=== PATIENT | female | born 1955 | race Caucasian/White ===

== ENCOUNTER 2016-06-01 19:00 | Inpatient (IN) | payer BC, OTHER ==
[~2016-06-01] VITALS: Ht 167.6 cm; Wt 47.6 kg
[2016-06-01 19:15] VITALS: BP 128/71
[2016-06-01] MEDS: PROPOFOL 100 ML IV PRN (19:20)
[2016-06-01] MEDS ORDERED: IV NS 0.9% 1,000 ML BAG IV ONE (19:30)
[2016-06-01] MEDS ORDERED: ETOMIDATE 2 MG/ML VIAL IV ONE (19:30)
[2016-06-01] MEDS ORDERED: SUCCINYLCHOLINE CHLORIDE 20 MG/ML VIAL IV ONE (19:30)
[2016-06-01] MEDS ORDERED: IV SET PRIMARY PUMP SET 1 EA INFUS.SET MC ONE (19:31)
[2016-06-01] MEDS ORDERED: PROPOFOL 100 ML IV ONE (19:31)
[2016-06-01 19:36] LABS: KETONES,URINE Negative (NEGATIVE); LEUKOCYTE ESTERASE ,URINE Small (NEGATIVE)
[2016-06-01 19:37] LABS: ADD UA MICROSCOPIC YES
[2016-06-01 19:39] LABS: ADD URINE CULTURE NO
[2016-06-01 19:44] LABS: ALANINE AMINOTRANSFERASE 26 U/L (12-78); ALBUMIN 3.3 g/dL (3.4-5.0); ANION GAP 12 (5-14); ASPARTATE AMINOTRANSFERASE 25 U/L (15-37); BILIRUBIN,DIRECT 0.1 mg/dL (0.0-0.2); BILIRUBIN,TOTAL 0.3 mg/dL (0.2-1.0); CALCIUM, SERUM 8.9 mg/dL (8.5-10.1); CARBON DIOXIDE 30 mmol/L (21-32); CHLORIDE 101 mmol/L (98-107); CREATININE 1.1 mg/dL (0.6-1.3); GFR 51 mL/min (>60); GLUCOSE 113 mg/dL (74-106); INDIRECT BILIRUBIN 0.2 mg/dL (0.0-1.1); POTASSIUM 4.6 mmol/L (3.5-5.1); SODIUM SERUM 138 mmol/L (136-145); TOTAL PROTEIN, SERUM 7.3 g/dL (6.4-8.2); UREA NITROGEN, BLOOD 14 mg/dL (7-18)
[2016-06-01 19:45] LABS: ACETAMINOPHEN < 2 ug/ml (10-30); INR 1.15 (0.87-1.13); PROTHROMBIN TIME 12.1 SECS (9.5-12.7); SALICYLATE 0.9 mg/dL (2.8-20.0)
[2016-06-01 19:49] LABS: CANNABINOID, URINE NEGATIVE (NEGATIVE); PHENCYCLIDINE SCREEN,URINE NEGATIVE (NEGATIVE)
[2016-06-01 19:54] LABS: TROPONIN I < 0.017 ng/mL (0.00-0.056)
[2016-06-01 21:04] LABS: THYROID STIMULATING HORMONE 3.371 uIU/mL (0.358-3.74)
[2016-06-01 21:08] LABS: ANISOCYTOSIS 1+; BAND % (MANUAL) 1 % (0.0-5.0); LYMPHOCYTES % (MANUAL) 10 % (16-48); PLATELET ESTIMATE ADEQUATE
[2016-06-01 21:11] LABS: BASOPHILS % (AUTO) 0.3 % (0.0-2.0); DIFF TOTAL % 100 %; EOSINOPHILS % (AUTO) 0.1 % (0.0-6.0); HEMATOCRIT 33 % (33-45); HEMOGLOBIN 10.7 g/dL (11.5-14.8); LYMPHOCYTES # (AUTO) 0.7 /CMM (0.8-4.8); LYMPHOCYTES % (AUTO) 11.7 % (20.0-44.0); MEAN CORPUSCULAR HEMOGLOBIN 28 PG (26.0-33.0); MEAN CORPUSCULAR HGB CONC 33 g/dl (31.0-36.0); MEAN CORPUSCULAR VOLUME 86 fL (82-100); MONOCYTES # (AUTO) 0.4 /CMM (0.1-1.30); MONOCYTES % (AUTO) 6.4 % (2.0-12.0); NEUTROPHILS # (AUTO) 4.7 /CMM (1.8-8.9); NEUTROPHILS % (AUTO) 81.5 % (43.0-81.0); PLATELET COUNT (AUTO) 387 /CMM (150-450); RED BLOOD CELL COUNT(AUTO) 3.85 MIL/uL (4.0-5.2); WHITE BLOOD COUNT (AUTO) 5.8 K/uL (4.3-11.0)
[2016-06-01 21:15] LABS: PHOSPHORUS 3.9 mg/dL (2.5-4.9)
[2016-06-01 21:19] LABS: ABG BASE EXCESS 3.9 mmol/L; ABG HCO3 25.7 mmol/L; ABG PCO2 29.3 mmHg (35.0-45.0); ABG PH 7.561 (7.350-7.450); ABG PO2 202.6 mmHg (75.0-100.0); ABG TOTAL HEMOGLOBIN 10.8 G/dL (12.0-16.0); ALLEN TEST Pass; AaDO2 48.9 mmHg; O2Hb 98.4 % (94.0-97.0)
[2016-06-01 21:52] VITALS: BP 120/75
[2016-06-01 22:00] VITALS: BP 124/74
[2016-06-01 23:00] VITALS: BP 125/76
[2016-06-01 23:43] VITALS: BP 120/73
[2016-06-01] MEDS ORDERED: TRAZ300T2 PO (23:43)
[2016-06-01] MEDS ORDERED: ESCI20TA PO (23:43)
[2016-06-01] MEDS ORDERED: GABA600T2 PO (23:43)
[2016-06-01] MEDS ORDERED: CLON0.5T23 PO (23:43)
[2016-06-01] MEDS ORDERED: OLAN7.5T3 PO (23:43)
[2016-06-01] MEDS ORDERED: ZOLP10TA6 PO (23:43)
[2016-06-01] MEDS ORDERED: GABA-532 PO (23:43)
[2016-06-02] VITALS (46 sets, daily range): BP systolic 101–146; BP diastolic 56–94
[2016-06-02] MEDS ORDERED: HYDROCODONE/APAP 5/325MG 1 EACH TABLET PO PRN (02:00)
[2016-06-02] MEDS ORDERED: IV NS 0.9% 1,000 ML IV PRN (02:00)
[2016-06-02] MEDS ORDERED: MAGNESIUM HYDROXIDE 30 ML UDC PO PRN (02:00)
[2016-06-02] MEDS ORDERED: Z GUARD REMEDY 2 OZ OINT TP PRN (02:00)
[2016-06-02] MEDS ORDERED: ACETAMINOPHEN 325 MG TABLET PO PRN (02:00)
[2016-06-02] MEDS ORDERED: ONDANSETRON HCL/PF 4 MG/2 ML VIAL IVP PRN (02:00)
[2016-06-02] MEDS ORDERED: IV NS 0.9% 1,000 ML ONE (03:02)
[2016-06-02] MEDS ORDERED: IV SET PRIMARY PUMP SET 1 EA INFUS.SET MC ONE (03:03)
[2016-06-02] MEDS ORDERED: ENOXAPARIN SODIUM 40 MG/0.4 ML DISP.SYRIN SQ ONE (03:10)
[2016-06-02] MEDS: PANTOPRAZOLE 40 MG VIAL IV SCH (03:12)
[2016-06-02] MEDS ORDERED: ENOXAPARIN SODIUM 40 MG/0.4 ML DISP.SYRIN SQ SCH ×2 (03:30→07:12)
[2016-06-02 05:47] LABS: ABG BASE EXCESS 2.1 mmol/L; ABG HCO3 24.9 mmol/L; ABG PCO2 32.6 mmHg (35.0-45.0); ABG PH 7.501 (7.350-7.450); ABG PO2 203.8 mmHg (75.0-100.0); ABG TOTAL HEMOGLOBIN 10.7 G/dL (12.0-16.0); AaDO2 43.9 mmHg; O2Hb 97.1 % (94.0-97.0)
[2016-06-02] MEDS: PROPOFOL 100 ML IV PRN ×3 (06:54→18:04)
[2016-06-02] MEDS ORDERED: PANTOPRAZOLE 40 MG TABLET.DR PO SCH (07:30)
[2016-06-02] MEDS ORDERED: Magnesium 1GM/D5W 100ML PREMIX 100 ML IV SCH (11:30)
[2016-06-02] MEDS ORDERED: SECONDARY IV SET 1 EA INFUS.SET MC ONE (12:18)
[2016-06-02] MEDS ORDERED: SUCCINYLCHOLINE CHLORIDE 20 MG/ML VIAL IV ONE (12:28)
[2016-06-02] MEDS ORDERED: ETOMIDATE 2 MG/ML VIAL IV ONE (12:28)
[2016-06-02 13:02] LABS: ABG BASE EXCESS 0.7 mmol/L; ABG HCO3 23.7 mmol/L; ABG PCO2 32.3 mmHg (35.0-45.0); ABG PH 7.483 (7.350-7.450); ABG PO2 158.5 mmHg (75.0-100.0); ABG TOTAL HEMOGLOBIN 10.5 G/dL (12.0-16.0); ALLEN TEST Pass; AaDO2 53.5 mmHg; O2Hb 96.6 % (94.0-97.0)
[2016-06-02] MEDS: IV D5/ 0.9% NACL 1,000 ML IV PRN (14:19)
[2016-06-02] MEDS: ENOXAPARIN SODIUM 40 MG/0.4 ML DISP.SYRIN SQ SCH (20:53)
[2016-06-02] MEDS ORDERED: Magnesium 1GM/D5W 100ML PREMIX 100 ML IV ONE (22:18)
[2016-06-02] MEDS ORDERED: Magnesium 1GM/D5W 100ML PREMIX PIGGYBACK IV ONE (22:30)
[2016-06-02 23:09] LABS: CALCIUM, SERUM 8.4 mg/dL (8.5-10.1); POTASSIUM 3.9 mmol/L (3.5-5.1)
[2016-06-03] VITALS (44 sets, daily range): BP systolic 99–146; BP diastolic 58–87
[2016-06-03] MEDS ORDERED: IV SET PRIMARY PUMP SET 1 EA INFUS.SET MC ONE (01:02)
[2016-06-03] MEDS: PANTOPRAZOLE 40 MG VIAL IV SCH (02:02)
[2016-06-03] MEDS: PROPOFOL 100 ML IV PRN ×2 (03:22→07:38)
[2016-06-03] MEDS: IV D5/ 0.9% NACL 1,000 ML IV PRN ×3 (03:24→20:24)
[2016-06-03 04:55] LABS: BASOPHILS # (AUTO) 0.1 /CMM (0.0-0.2); DIFF TOTAL % 100 %; EOSINOPHILS # (AUTO) 0.1 /CMM (0.0-0.7); EOSINOPHILS % (AUTO) 0.8 % (0.0-6.0); HEMATOCRIT 32 % (33-45); HEMOGLOBIN 10.7 g/dL (11.5-14.8); LYMPHOCYTES # (AUTO) 1.2 /CMM (0.8-4.8); MEAN CORPUSCULAR HEMOGLOBIN 29 PG (26.0-33.0); MEAN CORPUSCULAR HGB CONC 33 g/dl (31.0-36.0); MEAN CORPUSCULAR VOLUME 86 fL (82-100); MONOCYTES # (AUTO) 1.3 /CMM (0.1-1.30); MONOCYTES % (AUTO) 17.2 % (2.0-12.0); NEUTROPHILS # (AUTO) 4.8 /CMM (1.8-8.9); PLATELET COUNT (AUTO) 316 /CMM (150-450); RED BLOOD CELL COUNT(AUTO) 3.76 MIL/uL (4.0-5.2); WHITE BLOOD COUNT (AUTO) 7.4 K/uL (4.3-11.0)
[2016-06-03 05:10] LABS: CALCIUM, SERUM 8.6 mg/dL (8.5-10.1); PHOSPHORUS 3.4 mg/dL (2.5-4.9); POTASSIUM 3.9 mmol/L (3.5-5.1)
[2016-06-03 05:57] LABS: EOSINOPHILS % (MANUAL) 1 % (0-4); LYMPHOCYTES % (MANUAL) 19 % (16-48); PLATELET ESTIMATE ADEQUATE
[2016-06-03 13:18] LABS: ABG BASE EXCESS -1.6 mmol/L; ABG PCO2 18.2 mmHg (35.0-45.0); ABG PH 7.613 (7.350-7.450); ABG PO2 145.4 mmHg (75.0-100.0); ABG TOTAL HEMOGLOBIN 10.7 G/dL (12.0-16.0); ALLEN TEST Pass; AaDO2 47.1 mmHg; O2Hb 97.2 % (94.0-97.0)
[2016-06-03] MEDS ORDERED: QUETIAPINE FUMARATE 25 MG TABLET PO PRN (16:30)
[2016-06-03] MEDS: ENOXAPARIN SODIUM 40 MG/0.4 ML DISP.SYRIN SQ SCH (20:15)
[2016-06-04] VITALS (22 sets, daily range): BP systolic 100–141; BP diastolic 55–81
[2016-06-04] MEDS: PANTOPRAZOLE 40 MG VIAL IV SCH (02:59)
[2016-06-04] MEDS: IV D5/ 0.9% NACL 1,000 ML IV PRN ×3 (05:44→20:55)
[2016-06-04 11:01] LABS: BASOPHILS % (AUTO) 0.5 % (0.0-2.0); DIFF TOTAL % 100 %; EOSINOPHILS # (AUTO) 0.1 /CMM (0.0-0.7); EOSINOPHILS % (AUTO) 1.2 % (0.0-6.0); HEMATOCRIT 28 % (33-45); HEMOGLOBIN 9.3 g/dL (11.5-14.8); LYMPHOCYTES # (AUTO) 0.9 /CMM (0.8-4.8); LYMPHOCYTES % (AUTO) 15.2 % (20.0-44.0); MEAN CORPUSCULAR HEMOGLOBIN 28 PG (26.0-33.0); MEAN CORPUSCULAR HGB CONC 33 g/dl (31.0-36.0); MEAN CORPUSCULAR VOLUME 85 fL (82-100); MONOCYTES # (AUTO) 0.8 /CMM (0.1-1.30); MONOCYTES % (AUTO) 13.8 % (2.0-12.0); NEUTROPHILS # (AUTO) 4.2 /CMM (1.8-8.9); NEUTROPHILS % (AUTO) 69.3 % (43.0-81.0); PLATELET COUNT (AUTO) 304 /CMM (150-450); RED BLOOD CELL COUNT(AUTO) 3.28 MIL/uL (4.0-5.2)
[2016-06-04 11:16] LABS: CALCIUM, SERUM 8.2 mg/dL (8.5-10.1); CREATININE 0.9 mg/dL (0.6-1.3); POTASSIUM 3.2 mmol/L (3.5-5.1)
[2016-06-04] MEDS: POTASSIUM CHLORIDE 20 MEQ TAB.PRT.SR PO SCH ×2 (12:27→12:28)
[2016-06-04] MEDS: QUETIAPINE FUMARATE 25 MG TABLET PO SCH (16:24)
[2016-06-04] MEDS ORDERED: IV SET PRIMARY PUMP SET 1 EA INFUS.SET MC ONE (20:30)
[2016-06-04] MEDS: ENOXAPARIN SODIUM 40 MG/0.4 ML DISP.SYRIN SQ SCH (21:06)
[2016-06-05] VITALS: BP 152/77
[2016-06-05] MEDS: PANTOPRAZOLE 40 MG VIAL IV SCH (01:28)
[2016-06-05 04:00] VITALS: BP 122/69
[2016-06-05] MEDS: IV D5/ 0.9% NACL 1,000 ML IV PRN (05:34)
[2016-06-05 08:01] LABS: BASOPHILS % (AUTO) 0.4 % (0.0-2.0); DIFF TOTAL % 100 %; EOSINOPHILS # (AUTO) 0.1 /CMM (0.0-0.7); HEMATOCRIT 28 % (33-45); HEMOGLOBIN 9.2 g/dL (11.5-14.8); LYMPHOCYTES # (AUTO) 0.9 /CMM (0.8-4.8); LYMPHOCYTES % (AUTO) 17.4 % (20.0-44.0); MEAN CORPUSCULAR HEMOGLOBIN 28 PG (26.0-33.0); MEAN CORPUSCULAR HGB CONC 33 g/dl (31.0-36.0); MEAN CORPUSCULAR VOLUME 86 fL (82-100); MONOCYTES # (AUTO) 0.6 /CMM (0.1-1.30); MONOCYTES % (AUTO) 11.8 % (2.0-12.0); NEUTROPHILS # (AUTO) 3.3 /CMM (1.8-8.9); NEUTROPHILS % (AUTO) 68.4 % (43.0-81.0); PLATELET COUNT (AUTO) 267 /CMM (150-450); RED BLOOD CELL COUNT(AUTO) 3.25 MIL/uL (4.0-5.2); WHITE BLOOD COUNT (AUTO) 4.9 K/uL (4.3-11.0)
[2016-06-05 08:09] VITALS: BP 132/76
[2016-06-05] MEDS: QUETIAPINE FUMARATE 25 MG TABLET PO SCH (08:17)
[2016-06-05 08:26] LABS: CALCIUM, SERUM 8.4 mg/dL (8.5-10.1); CREATININE 0.9 mg/dL (0.6-1.3); POTASSIUM 3.4 mmol/L (3.5-5.1)
[2016-06-05] MEDS ORDERED: POTASSIUM CHLORIDE 20 MEQ TAB.PRT.SR PO ONE (10:00)
[2016-06-05] MEDS ORDERED: QUET25TA PO ×2 (15:08)
[2016-06-05] MEDS ORDERED: ESCITALOPRAM OXALATE (10 MG) 10 MG TABLET PO SCH (15:30)
[2016-06-05] MEDS ORDERED: GABAPENTIN 100 MG CAPSULE PO SCH (17:00)
[2016-06-05] MEDS ORDERED: OLANZAPINE 2.5 MG TABLET PO SCH (22:00)
== END 2016-06-05 17:00 | DRG 917 ==
LOC: ER 19:02 → ICU 20:07 → TELE 06-04 20:15
PROVIDERS: ADMIT Nurse Practitioner Acute Care; ATTEND Nurse Practitioner Acute Care
PROC: 5A1945Z Respiratory Ventilation, 24-96 Consecutive Hours (ICD-10-PCS; principal; 2016-06-01)
DX: T50.902A Poisoning by unspecified drugs, medicaments and biological substances, intentional self-harm, initial encounter (principal); J96.00 Acute respiratory failure, unspecified whether with hypoxia or hypercapnia; E44.1 Mild protein-calorie malnutrition; E87.4 Mixed disorder of acid-base balance; Z91.5 Personal history of self-harm; F39 Unspecified mood [affective] disorder; E78.5 Hyperlipidemia, unspecified; D63.8 Anemia in other chronic diseases classified elsewhere; E87.6 Hypokalemia; F43.10 Post-traumatic stress disorder, unspecified; Y92.9 Unspecified place or not applicable
CPT/HCPCS: 36415; 36600; 70450-TC; 71010-TC; 80048-TC; 80061-TC; 80076-TC; 80305; 81000-TC; 82140-TC; 82550-TC; 82803-TC; 83605-TC; 83735-TC; 84100-TC; 84443-TC; 84484-TC; 85025-TC; 85730-TC; 87040-TC; 87081-TC; 92611-TC; 94002-TC; 94003-TC; 94799-TC; 99082-TC; A4606; A6402; C9113; G0480; G6039-TC; J0330; J1650; J3475; J3490; J7030; J7042; Z7610

== ENCOUNTER 2016-06-05 17:28 | Inpatient (IN) | payer BC, OTHER ==
[~2016-06-05] VITALS: Ht 152.4 cm; Wt 49.0 kg
[~2016-06-05 17:28] MED LIST: CLON0.5T23 PO; ESCI20TA PO; GABA-532 PO; GABA600T2 PO; OLAN7.5T3 PO; QUET25TA PO; TRAZ300T2 PO; ZOLP10TA6 PO
--- NOTE | 2016-06-05 17:40 | NUR ---
ADMISSION NOTES/ PATIENT ADMITTED FROM MED/SURGE UNIT ON 5150 HOLD FEMALE 60 Y/OLD. ACCORDING ON HOLD PATIENT DX. PSYCHOSIS NOS, DEPRESSION. ON FACE TO FACE PATIENT A/O X3/4, QUIET, REDIRECTABLE, DENIED SI/HI AT THIS TIME. V/S TAKE STABLE BP-126/67, P-77, R-19, O2-99 ROOM AIR, T-98.2. SKIN ASSESSMENT DONE, PT AMBULATORY SELF CARE, CONTINENT.PICTURE TAKEN, PT SIGN PAPERWORK. BELONGING AND CONTRABAND CHECKED. DR DIAZ, AND SALES AGENT [employer]ING [employer] CHLOE AWARE OF NEW ADMISSION, AND NEW MEDICATION.
[2016-06-05] MEDS ORDERED: LORAZEPAM 0.5 MG TABLET PO PRN (18:30)
[2016-06-05] MEDS ORDERED: MAGNESIUM HYDROXIDE 30 ML UDC PO PRN (18:30)
[2016-06-05] MEDS ORDERED: MAG HYDROX/AL HYDROX/SIMETH 30 ML UDC PO PRN (18:30)
[2016-06-05] MEDS ORDERED: ACETAMINOPHEN 325 MG TABLET PO PRN (18:30)
[2016-06-05 18:31] VITALS: BP 126/67
--- NOTE | 2016-06-05 19:15 | NUR ---
[facility] CALLED LAB FOR [facility] OPERATOR.
[2016-06-05] MEDS ORDERED: SERTRALINE HCL 50 MG TABLET PO ONE (19:30)
[2016-06-05] MEDS: DIVALPROEX SODIUM 125 MG TABLET.DR PO SCH (20:22)
[2016-06-05 20:32] VITALS: BP 136/81
[2016-06-05] MEDS: OLANZAPINE 10 MG TABLET PO SCH (21:04)
[2016-06-06 07:44] LABS: ALBUMIN 2.6 g/dL (3.4-5.0); BILIRUBIN,TOTAL 0.3 mg/dL (0.2-1.0); CREATININE 0.8 mg/dL (0.6-1.3); POTASSIUM 3.5 mmol/L (3.5-5.1); TOTAL PROTEIN, SERUM 6.4 g/dL (6.4-8.2)
[2016-06-06 08:00] VITALS: BP 126/69
[2016-06-06] MEDS: SERTRALINE HCL 50 MG TABLET PO SCH (09:11)
[2016-06-06] MEDS: DIVALPROEX SODIUM 125 MG TABLET.DR PO SCH ×2 (09:11→21:26)
--- NOTE | 2016-06-06 10:54 | NUR ---
Initial DC Plan: Patient resides with her roommate at [id number] [place] [address] [address] , [place] [address]; [phone]. SW spoke to the patient's roommate (Gianna Mueller- [phone]) who stated that she can return home when discharged. Patient is set for discharge tomorrow and her roommate stated that she can pick her up tomorrow 06/07/2016 at 1:30pm. Prescription to be given to patient's roommate as patient has hx of overdosing on her meds. SW will help form a safe and proper discharge.
--- NOTE | 2016-06-06 11:26 | NUR ---
UR update: KING left a voicemail for Opal from [facility] [phone] with information for pt's discharge tomorrow. Will follow up.
[2016-06-06 16:00] VITALS: BP 119/71
[2016-06-06 20:00] VITALS: BP 125/78
[2016-06-06] MEDS: OLANZAPINE 10 MG TABLET PO SCH (21:26)
[2016-06-07 08:06] VITALS: BP 124/69
[2016-06-07] MEDS: DIVALPROEX SODIUM 125 MG TABLET.DR PO SCH (08:25)
[2016-06-07] MEDS: SERTRALINE HCL 50 MG TABLET PO SCH (08:25)
--- NOTE | 2016-06-07 08:45 | NUR ---
RN-CO: Dr Delarosa ordered to discontinue hold and discharge patient today, noted. Patient remain calm and cooperative to care. Denied suicidal and homicidal ideation, denied auditory and visual hallucination. Affect is appropriate Pt slept well last night.
--- NOTE | 2016-06-07 11:54 | NUR ---
PT. WITH AN ORDER TO D/C HOLD AND D/C HOME WITH ROOM MATE, WITHOUT DISTRESS, DENIES SUICIDAL AND HOMICIDAL. MOMO MARTINEZ NP MADE AWARE OF THE DISCHARGE AND SAID OK FOR DISCHARGE. PT. SIGNED THE DISCHARGE PAPERS, PT. SIGNED THE DISCHARGE PAPERS AND BELONGINGS READY.
--- NOTE | 2016-06-07 13:45 | NUR ---
PT. LEFT THE UNIT WITH BELONGINGS AND PICKED BY BY ASHLEE BUCHANAN KEITH. PT. INSTRUCTED AND ON MEDS TO CONTINUE AT HOME AND VERBALIZES UNDERSTANDING AND ADVISED TO MAKE A FOLLOW UP ON PSYCH AND MEDICAL DOCTORS AND AGREED. LEFT THE UNIT, WITHOUT DISTRESS, AMBULATORY AND ON STABLE CONDITION. V/S TAKEN: BP 124/71, NV 81, RR 18, TEMP 98.5, OXYGEN SAT 98%. Addendum: 06/07/16 at 8 by CHRISTINA SAM RN AND ESCORTED BY STAFF TO THE LOBBY.
--- NOTE | 2016-06-07 15:37 | NUR ---
Discharge Note: Patient was discharged back home with roommate to [address] [place] [address], [place] [id number]; [phone]. Patient's roommate Gianna OrnelasBerryville- [phone]- picked her up. Patient left the unit in stable condition. Facilitated info to IDT team who are in agreement with DC arrangement. The multidisciplinary exitcare form was done, printed, signed, and given to the patient.
== END 2016-06-07 13:45 | disposition home or self-care (01) | DRG 885 ==
LOC: GPS 17:28
PROVIDERS: ADMIT Psychiatry & Neurology Psychosomatic Medicine; ATTEND Nurse Practitioner Acute Care
DX: F32.3 Major depressive disorder, single episode, severe with psychotic features (principal); E44.1 Mild protein-calorie malnutrition; G35 Multiple sclerosis; F43.10 Post-traumatic stress disorder, unspecified; F41.9 Anxiety disorder, unspecified; K59.00 Constipation, unspecified; Z91.5 Personal history of self-harm; D64.9 Anemia, unspecified; E78.5 Hyperlipidemia, unspecified; Z79.899 Other long term (current) drug therapy
CPT/HCPCS: 36415; 80053-TC; 80061-TC; 87081-TC